=== PATIENT | female | born 1990 | race American Indian/Alaskan Native ===

== ENCOUNTER 2021-07-17 07:39 | Emergency (ER) | payer SELFPAY ==
[~2021-07-17] VITALS: Ht 154.9 cm; Wt 63.0 kg
[2021-07-17 07:48] VITALS: BP 138/80
[2021-07-17] MEDS ORDERED: ACETAMINOPHEN 325MG TABLET PO ONE (08:15)
[2021-07-17] MEDS ORDERED: ACET-2708 MT (09:50)
== END 2021-07-17 10:21 | disposition home or self-care (01) ==
LOC: ER 07:39
DX: M25.561 Pain in right knee (principal); I10 Essential (primary) hypertension
CPT/HCPCS: 73562; 81025; 99283